=== PATIENT | female | born 1955 | race Caucasian/White ===

== ENCOUNTER 2018-08-25 16:53 | Emergency (ER) | payer OTHER ==
[~2018-08-25] VITALS: Ht 157.5 cm; Wt 54.9 kg
[2018-08-25 17:07] VITALS: BP 151/117
[2018-08-25 17:56] VITALS: BP 139/93
== END 2018-08-25 17:55 | disposition home or self-care (01) ==
LOC: MED 16:53
DX: K59.00 Constipation, unspecified (principal); I10 Essential (primary) hypertension; K21.9 Gastro-esophageal reflux disease without esophagitis
CPT/HCPCS: 74022; 99284

== ENCOUNTER 2020-11-16 20:29 | Observation (INO) | payer OTHER, SELFPAY ==
[~2020-11-16] VITALS: Ht 154.9 cm; Wt 64.0 kg
[2020-11-16 20:53] VITALS: BP 141/99
--- NOTE | 2020-11-16 21:10 | NUR ---
PATIENT AMBULATED TO BED 5.
--- NOTE | 2020-11-16 21:34 | NUR ---
ERMD at bedside for medical evaluation.
--- NOTE | 2020-11-16 21:45 | NUR ---
65 YR OLF FEMALE PRESENTED TO THE ER WITH CC OF DYSPHAGIA. PT IS AOX4. PT STATES DYSPHAGIA SINCE THIS MORNING. PT THROAT AND TONGUE IS NOT SWOLLEN. PT STATES NAUSEA AND VOMITS WHEN TRIES TO SWALLOW. PT STATES LAST MEAL WAS YESTERDAY AT 4P. PT STATES 3/10 NON-RADIATING THROBBING HEADACHE THAT STARTED APPROXIMATELY 1 HR AGO. PT STATES NO OTHER MEDICAL COMPLAINTS. PT IS EGYPTIAN SPEAKING. BED LOCKED IN LOWEST POSITION. WILL CONTINUE TO MONITOR. HISTORY- HTN ALLERGIES- NONE
[2020-11-16 22:32] LABS: BASOPHILS % (AUTO) 0.6 % (0.0-2.0); EOSINOPHILS % (AUTO) 0.1 % (0.0-4.0); HEMATOCRIT 42.8 % (36-48); HEMOGLOBIN 14.6 g/dL (12.0-16.0); LYMPHOCYTES # (AUTO) 1.2 K/uL (2.5-16.5); LYMPHOCYTES % (AUTO) 16.6 % (20.5-51.1); MEAN CORPUSCULAR HEMOGLOBIN 31 pg (27-31); MEAN CORPUSCULAR HGB CONC 34 g/dL (33-37); MEAN CORPUSCULAR VOLUME 90.8 fL (80-94); MONOCYTES # (AUTO) 0.4 K/uL (0.8-1.0); MONOCYTES % (AUTO) 5.7 % (1.7-9.3); NEUTROPHILS # (AUTO) 5.6 K/uL (1.8-7.7); PLATELET COUNT (AUTO) 223 K/uL (140-450); RED BLOOD CELL COUNT(AUTO) 4.71 MIL/uL (4.20-5.40); RED CELL DISTRIBUTION WIDTH 13.2 % (11.6-13.7); WHITE BLOOD COUNT (AUTO) 7.2 K/uL (4.8-10.8)
[2020-11-16 23:04] LABS: ALBUMIN 4.5 g/dL (3.4-5.0); CARBON DIOXIDE 29.2 mmol/L (21-32); CREATININE 0.8 mg/dL (0.6-1.3); POTASSIUM 4.2 mmol/L (3.5-5.1); TOTAL BILIRUBIN 0.7 mg/dL (0.0-1.0)
--- NOTE | 2020-11-16 23:10 | NUR ---
PT FOUND AWAKE IN SEMI-HOLDEN'S POSITION IN BED. VISIBLE EQUAL RISE AND FALL UPON RESPIRATION. PT STATES NO PAIN AND NO DISTRESS. BED LOCKED IN LOWEST POSITION. WILL CONTINUE TO MONITOR.
--- NOTE | 2020-11-16 23:11 | NUR ---
ADVISEDOF PT'S ELEVATED HEART RATE OF 135 AND C/O NAUSEA. NEW ORDER FOR IV AND FLUIDS PLACED.
[2020-11-16] MEDS ORDERED: NACL 0.9% 2,000 ML IV ONE (23:40)
[2020-11-16] MEDS ORDERED: NACL 0.9% 1,000 ML IV ONE ×2 (23:40)
--- NOTE | 2020-11-16 23:45 | NUR ---
Per verbal order from LESLYE Ochoa, she wants 2L NS bolus , not the 100 ml/hr NS.
--- NOTE | 2020-11-17 00:58 | NUR ---
PT AMBULATED TO RESTROOM.
--- NOTE | 2020-11-17 01:03 | NUR ---
PT AMBULATED BACK TO BED FROM RESTROOM.
[2020-11-17] MEDS ORDERED: NACL 0.9% 1,000 ML IV ONE (02:25)
--- NOTE | 2020-11-17 02:26 | NUR ---
PT FOUND AWAKE IN SEMI-HOLDEN'S POSITION IN BED. PT STATES NO PAIN AND NO NAUSEA. PT HEART RATE IS AT 110/MIN. ERMD AWARE OF PT STATUS. BED LOCKED IN LOWEST POSITION. WILL CONTINUE TO MONITOR.
--- NOTE | 2020-11-17 03:02 | NUR ---
LESLYE Shi at bedside for medical evaluation.
[2020-11-17] MEDS ORDERED: OSC500 PO (03:10)
[2020-11-17] MEDS ORDERED: VITD400 PO (03:10)
[2020-11-17] MEDS ORDERED: MECO10005 PO (03:10)
[2020-11-17] MEDS ORDERED: LISI-486 PO (03:10)
--- NOTE | 2020-11-17 03:26 | NUR ---
PT FOUND AWAKE IN SEMI-HOLDEN'S POSITION IN BED. PT STATES NO PAIN AND NO DISTRESS. PT HAS VISIBLE EQUAL RISE AND FALL UPON RESPIRATION. BED LOCKED IN LOWEST POSITION WITH 2 SIDE RAILS UP FOR SAFETY. WILL CONTINUE TO MONITOR.
--- NOTE | 2020-11-17 03:30 | NUR ---
PRAMOD SWAB COLLECTED AND WALKED TO LAB.
--- NOTE | 2020-11-17 05:40 | NUR ---
PT FOUND AWAKE IN SEMI-HOLDEN'S POSITION IN BED. PT STATES 8/10 FRONTAL HEADACHE THAT IS NON-RADIATING. PT STATES SHARP FRONTAL HEADACHE. ERMD AWARE
--- NOTE | 2020-11-17 05:45 | NUR ---
PT AMBULATED TO RESTROOM.
[2020-11-17] MEDS ORDERED: PANTOPRAZOLE 40 MG INJ VIAL IVP ONE (05:50)
[2020-11-17] MEDS ORDERED: KETOROLAC 30 MG/ML VIAL IVP ONE (05:50)
--- NOTE | 2020-11-17 05:50 | NUR ---
PT AMBULATED BACK TO BED FROM RESTROOM.
[2020-11-17] MEDS ORDERED: ACETAMINOPHEN 325 MG TAB PO PRN (07:15)
[2020-11-17] MEDS ORDERED: DEXT 5% / NACL 0.45% 1,000 ML IV SCH (07:15)
[2020-11-17] MEDS ORDERED: MAG SULF 2000 MG/WATER PREMIX 50 ML IV PRN (07:15)
[2020-11-17] MEDS ORDERED: MORPHINE SULFATE 4 MG/ML SYR IVP PRN (07:15)
[2020-11-17] MEDS ORDERED: ONDANSETRON 4 MG/2 ML VIAL IVP PRN (07:15)
[2020-11-17] MEDS ORDERED: KCL 20 MEQ/WATER INJ PREMIX 200 ML IV PRN (07:15)
[2020-11-17] MEDS ORDERED: HYDROcodone/APAP 5/325 MG 1 TAB TAB PO PRN (07:15)
--- NOTE | 2020-11-17 07:15 | NUR ---
TRANSFER OF CARE REPORT GIVEN TO REMIGIO PATEL.
--- NOTE | 2020-11-17 07:49 | NUR ---
Patient will be admitted to care of Dr Stewart. Admited to [facility]. Will go to room 119A. Belongings list completed. Report to Eloy PATEL.
[2020-11-17 08:00] VITALS: BP 148/85
--- NOTE | 2020-11-17 08:00 | NUR ---
RECEIVED REPORT FROM ER NURSE REMIGIO FOR CONTINUITY OF CARE. PATIENT WAS BROUGHT TO THE FLOOR BY WHEELCHAIR. AAOX 4. UKRAINIAN SPEAKING. BREATHING EVEN AND UNLABORED IN ROOM AIR. SKIN WARM AND DRY, INTACT. IV TO THE RIGHT AC 22G INFUSING D5 1/2 NS @ 80ML/HR. ABDOMEN SOFT, NON TENDER. ACTIVE BOWEL SOUNDS. MRSA NARES COLLECTED. ORIENTED PATIENT TO THE ROOM, CALL LIGHT. SAFETY MEASURES IN PLACE, WILL CONTINUE TO MONITOR.
[2020-11-17] MEDS ORDERED: PANTOPRAZOLE 40 MG INJ VIAL IVP SCH (09:00)
--- NOTE | 2020-11-17 09:14 | NUR ---
PATIENT HAS BEEN SCREENED AND CATEGORIZED HIGH NUTRITION RISK. PATIENT WILL BE SEEN WITHIN 1-2 DAYS OF ADMISSION. 11/17/20-11/18/[address]
--- NOTE | 2020-11-17 09:20 | NUR ---
INFORMED DR. US THAT NOT ABLE TO PERFORM XR ESOPHAGRAM SPEECH EVAL SINCE EXAM ROOM UNDER CONSTRUCTION, PER TECH. DR. US STATED KEEP PATIENT NPO.
--- NOTE | 2020-11-17 10:15 | NUR ---
MORNING DOSE OF PROTONIX NOT GIVEN. PER ER NURSE REMIGIO PROTONIX BEEN GIVEN IN ER AT 6AM.
--- NOTE | 2020-11-17 11:25 | NUR ---
EGD CONSENT SIGNED BY THE PATIENT. CHIEF OF [place], [place] [id number].
[2020-11-17] MEDS ORDERED: fentaNYL citrate 0.05 MG/ML VIAL ONE (12:03)
[2020-11-17] MEDS ORDERED: MIDAZOLAM 2 MG/2 ML VIAL ONE (12:03)
[2020-11-17] MEDS ORDERED: diphenhydrAMINE 50 MG/ML VIAL ONE (12:03)
--- NOTE | 2020-11-17 12:58 | NUR ---
PATIENT WAS PICKED UP BY THE OR NURSE TO HAVE PROCEDURE EGD, WILL FOLLOW UP.
--- NOTE | 2020-11-17 13:45 | NUR ---
PATIENT BACK FROM EGD. V/S CHECKED. TEMP 97.3, BP 108/69. HR 82. RR16 NO ACUTE DISTRESS NOTED, WILL CONTINUE TO MONITOR.
[2020-11-17] MEDS ORDERED: MIDAZOLAM 2 MG/2 ML VIAL IVP ONE (14:05)
[2020-11-17] MEDS ORDERED: fentaNYL citrate 0.05 MG/ML VIAL IVP ONE (14:05)
--- NOTE | 2020-11-17 15:35 | NUR ---
11/17/20 RD INITIAL ASSESSMENT COMPLETED PLEASE REFER TO NUTRITION ASSESSMENT UNDER CARE ACTIVITY FOR ESTIMATED NUTRITIONAL NEEDS. 1. CONTINUE CLEAR LIQUID DIET 2. RECOMMEND ENSURE CLEAR TID 3. IF/WHEN MEDICALLY STABLE ADVANCE DIET TO SOFT 4. RD TO FOLLOW-UP 2-3 DAYS, HIGH RISK GURWINDER ZACARIAS, RD
[2020-11-17 16:00] VITALS: BP 122/74
[2020-11-17] MEDS ORDERED: LANSOPRAZOLE 30 MG CAPDR PO SCH (16:30)
--- NOTE | 2020-11-17 18:35 | NUR ---
* ST NOTE * Pt seen at bedside after receiving clearance from Charge Nurse (Florencia). Pt asleep upon entering room. Upon awakening, pt alert and cooperative, reporting no c/o pain at this time. Clinical Bedside Swallow Evaluation completed. See evaluation report for further details. Pt presenting with oral phase of swallow to be WFL, characterized by adequate lingual, mandibular and labial strength, coordination and ROM, as evidenced by the following: adequate oral preparatory phase upon accepting PO trials; adequate bolus formation and manipulation; adequate mastication; timely A-P bolus transit; and adequate oral clearance, w/pt reporting no difficulty masticating at this time. Pt suspected to have pharyngeal phase of swallow w/NAD, characterized by no overt s/s of aspiration during or after PO intake; evidenced by suspected adequate laryngeal elevation and complete hyolaryngeal excursion upon palpation; w/pt reporting no difficulty swallowing as well, and no globus sensation at this time. Pt may benefit from a PO diet consistency of regular solids w/thin liquids for all meals once medically cleared by MD, w/aspiration precautions in place during pt's PO intake. No further ST follow up indicated at this time. Pt and RN (Kuldeep) education completed re: results of evaluation; benefits of abiding by aspiration precautions; and prognosis for improvement; with pt and RN verbalizing understanding and agreement w/clinician's recommendations. Recommend: - PO DIET CONSISENCY OF REGULAR SOLIDS W/THIN LIQUIDS FOR ALL MEALS ONCE MEDICALLY CLEARED BY MD - WHOLE PILL MEDICATION ADMINISTRATION TOLERATED; MAY MIX PILLS IN PUREE TEXTURES - MAINTAIN ASPIRATION PRECAUTIONS DURING PT'S PO INTAKE - UPRIGHT POSITIONING; SLOWED RATE OF INTAKE; SMALL BITES/SIPS; ALTERNATE BTWN SOLIDS AND LIQUIDS; CHECK FOR POCKETED FOOD; AND REMAIN IN UPRIGHT POSITION FOR AT LEAST 20 MIN AFTER PO INTAKE No further ST follow up indicated at this time.
[2020-11-17] MEDS ORDERED: OMEP40EC14 PO (19:18)
--- NOTE | 2020-11-17 19:27 | NUR ---
ENDORSED PATIENT TO BILLET SHEARER RN FOR CONTINUITY OF CARE. PATIENT IN STABLE CONDITION. DENIES PAIN OR DISCOMFORT AT THIS TIME.
--- NOTE | 2020-11-17 19:27 | NUR ---
RECD. AMBULATING FROM BR. A/OX4. RESPIRATION EVEN AND UNLABORED. IV OF D5 0.45 NS INFUSING AT 80 ML/HR, RIGHT AC G22. TOLERATING CLEAR LIQUID DIET. INFORMED REGARDING DISCHARGE ORDER BY ATTENDING PHYSICIAN. INSTRUCTED TO CALL FAMILY. DENIES PAIN 0/10.
--- NOTE | 2020-11-17 20:30 | NUR ---
DISCHARGE INSTRUCTIONS GIVEN TO PATIENT WITH ASSISTANCE OF SUSTAINABILITY ENGINEER CHRISTOPHER #[id number]. PATIENT VERBALIZED UNDERSTANDING. IV DISCONTINUED.
--- NOTE | 2020-11-17 21:00 | NUR ---
SIGNED ALL DISCHARGE PAPERS AND ALL BELONGINGS PUT IN A PLASTIC BAG.
--- NOTE | 2020-11-17 21:25 | NUR ---
TAKEN TO HOSPITAL LOBBY PARKING VIA W/C IN STABLE CONDITION, ACCOMPANIED BY RETAIL AGENT TO WAITING DAUGHTER IN PRIVATE VEHICLE TO TAKE PATIENT HOME.
--- NOTE | 2020-11-23 20:32 | NUR ---
LATE ENTRY- Normal saline 0.9% IV fluids discontinued at 0045
--- NOTE | 2020-11-23 20:33 | NUR ---
LATE ENTRY- Normal saline 0.9% IV fluids discontinued at 0350
== END 2020-11-17 21:25 | disposition home or self-care (01) ==
LOC: MED 20:29 → MTU 11-17 07:15
PROVIDERS: ADMIT Hospitalist; ATTEND Hospitalist
DX: R13.10 Dysphagia, unspecified (principal); Z20.822 Contact with and (suspected) exposure to COVID-19; K29.70 Gastritis, unspecified, without bleeding; K21.00 Gastro-esophageal reflux disease with esophagitis, without bleeding; K44.9 Diaphragmatic hernia without obstruction or gangrene; I10 Essential (primary) hypertension; E86.0 Dehydration; R63.4 Abnormal weight loss; Z68.26 Body mass index [BMI] 26.0-26.9, adult
CPT/HCPCS: 36415; 43239; 43249; 70490; 80053; 85025; 87081; 87426; 88305; 88312; 88313; 92610; 93005; 96361; 96374; 96375; 99285; C1769; C9113; G0378; J1885; J2250; J3010; J7030; J1200